=== PATIENT | male | born 1970 | race African-American/Black ===

== ENCOUNTER 2016-05-23 10:59 | Emergency (ER) | payer SELFPAY ==
[~2016-05-23] VITALS: Ht 198.1 cm; Wt 120.0 kg
[2016-05-23 11:11] VITALS: BP 126/75; PULSE 115; RESP 15; TEMP 99.7; O2SAT 96
== END 2016-05-23 18:55 | disposition left against medical advice (07) ==
LOC: NED 10:59
DX: R68.89 Other general symptoms and signs (principal)
CPT/HCPCS: 99281